=== PATIENT | male | born 1955 | race Caucasian/White ===

== ENCOUNTER 2024-02-04 14:14 | Inpatient (IN) | payer MEDICARE, BC ==
[~2024-02-04] VITALS: Ht 182.9 cm; Wt 110.0 kg
[~2024-02-04 14:14] MED LIST: AMLO1TAB25 PO; ASPI81CH33 PO; ATOR80TA59 PO; CARV6.25 PO; CLOP75TA2 PO; ENOX60IN3 SC; FLOM0.4C39 PO; HYDR-3490 PO; LISI10TA22 PO; MED REC COMMENT; POLY17PO18 PO; SENN-23 PO; [UNRECOGNIZED DRUG - CODE] PO
[2024-02-04] MEDS ORDERED: ARIC1TAB PO (14:49)
[2024-02-04] MEDS ORDERED: SERT50TA29 PO (14:49)
[2024-02-04] MEDS ORDERED: FERR1TAB8 PO (14:49)
[2024-02-04] MEDS ORDERED: LISI20TA33 PO (14:49)
[2024-02-04] MEDS ORDERED: ISOS1TAB36 PO (14:49)
[2024-02-04] MEDS ORDERED: LIDO2URO TOP (14:49)
[2024-02-04] MEDS ORDERED: MINO2.5T PO (14:49)
[2024-02-04] MEDS ORDERED: HYDR50TA46 PO (14:49)
[2024-02-04 17:50] VITALS: BP 129/75; TEMP 97.7; O2SAT 97
[2024-02-04] MEDS: NS 500 ML IV ONE (18:46)
[2024-02-04 21:00] VITALS: BP 149/76; TEMP 97.9; O2SAT 94
[2024-02-04] MEDS: FINASTERIDE 5MG TAB PO SCH (21:05)
[2024-02-04] MEDS: ATORVASTATIN 20 MG TAB PO SCH (21:05)
[2024-02-05] VITALS (10 sets, daily range): BP systolic 118–210; BP diastolic 52–155; TEMP 97.9; O2SAT 96–98
[2024-02-05 06:16] LABS: BASO # 0.1 10^3/uL (0.0-0.2); BASO % 0.7 % (0.0-1.0); EOS # 0.3 10^3/uL (0.0-0.5); EOS % 4.2 % (0.0-3.0); HEMATOCRIT 29.1 % (42.0-52.0); HEMOGLOBIN 9.5 g/dl (13.5-17.5); LYMPH # 0.6 10^3/uL (1.5-5.0); LYMPH % 9.1 % (24.0-44.0); MEAN CORPUSCULAR HEMOGLOBIN 28.5 pg (27.0-33.0); MEAN CORPUSCULAR HGB CONC 32.6 g/dl (32.0-36.5); MEAN CORPUSCULAR VOLUME 87.4 fl (80.0-96.0); MONO # 0.5 10^3/uL (0.0-0.8); MONO % 7.2 % (2.0-8.0); NEUTROPHILS # 5.5 10^3/uL (1.5-8.5); NEUTROPHILS % 78.4 % (36.0-66.0); PLATELET COUNT, AUTOMATED 283 10^3/uL (150-450); RED BLOOD COUNT 3.33 10^6/uL (4.30-6.10)
[2024-02-05 06:41] LABS: CALCIUM LEVEL 8.7 MG/DL (8.3-10.6); CREATININE FOR GFR 1.81 MG/DL (0.70-1.30); GLOMERULAR FILTRATION RATE 40.1 (>49); POTASSIUM SERUM 4.3 MMOL/L (3.5-5.1)
[2024-02-05] MEDS ORDERED: HOME MED LIST COMPLETE! XX SCH (07:35)
[2024-02-05] MEDS: ASPIRIN 81MG CHEW TABLET PO SCH (08:20)
[2024-02-05] MEDS: **hydrALAZINE** 50 MG TAB PO ONE (08:21)
[2024-02-05] MEDS: ISOSORBIDE MON. (IMDUR) 60MG XR TAB PO ONE (08:21)
[2024-02-05] MEDS: THIAMINE 100 MG TAB PO SCH (08:22)
[2024-02-05] MEDS ORDERED: ISOSORBIDE MON. (IMDUR) 60MG XR TAB PO SCH (09:00)
[2024-02-05] MEDS: CLOPIDOGREL 75 MG TAB PO SCH (09:00)
[2024-02-05] MEDS ORDERED: hydrALAZINE 20MG/ML 1ML VIAL IV SCH (10:15)
[2024-02-05] MEDS: cloNIDine 0.1MG TABLET PO ONE ×2 (11:36→12:47)
[2024-02-05] MEDS ORDERED: **hydrALAZINE** 50 MG TAB PO SCH (12:00)
[2024-02-05] MEDS: NS 500 ML IV ONE (12:57)
[2024-02-05] MEDS: NS 1,000 ML IV ONE (13:52)
[2024-02-05] MEDS: ERTAPENEM SODIUM 1 GM in NS MINI-BAG PLUS 50 ML IV SCH (15:06)
[2024-02-05] MEDS: CARVedilol 6.25 MG TAB PO SCH (17:04)
[2024-02-05] MEDS: **hydrALAZINE** 50 MG TAB PO SCH (17:04)
[2024-02-05] MEDS: TAMSULOSIN 0.4 MG CAP PO SCH (21:35)
[2024-02-06] MEDS ORDERED: UNRESOLVED CLARIFICATION ENTRY XX SCH (00:01)
[2024-02-06 04:30] VITALS: BP 158/78; TEMP 98.2; O2SAT 94
[2024-02-06 06:59] LABS: BASO # 0.1 10^3/uL (0.0-0.2); BASO % 0.7 % (0.0-1.0); EOS # 0.3 10^3/uL (0.0-0.5); EOS % 4.4 % (0.0-3.0); HEMATOCRIT 27.2 % (42.0-52.0); HEMOGLOBIN 8.9 g/dl (13.5-17.5); LYMPH # 0.7 10^3/uL (1.5-5.0); MEAN CORPUSCULAR HEMOGLOBIN 28.3 pg (27.0-33.0); MEAN CORPUSCULAR HGB CONC 32.7 g/dl (32.0-36.5); MEAN CORPUSCULAR VOLUME 86.6 fl (80.0-96.0); MONO # 0.5 10^3/uL (0.0-0.8); MONO % 6.1 % (2.0-8.0); NEUTROPHILS # 5.9 10^3/uL (1.5-8.5); NEUTROPHILS % 79.4 % (36.0-66.0); PLATELET COUNT, AUTOMATED 253 10^3/uL (150-450); RED BLOOD COUNT 3.14 10^6/uL (4.30-6.10); WHITE BLOOD COUNT 7.5 10^3/uL (4.0-10.0)
[2024-02-06 07:28] LABS: CALCIUM LEVEL 8.4 MG/DL (8.3-10.6); CREATININE FOR GFR 1.72 MG/DL (0.70-1.30); GLOMERULAR FILTRATION RATE 42.6 (>49); POTASSIUM SERUM 4.1 MMOL/L (3.5-5.1)
[2024-02-06] MEDS: ISOSORBIDE MON. (IMDUR) 60MG XR TAB PO SCH (09:04)
[2024-02-06 12:12] VITALS: BP 147/75; TEMP 97.9; O2SAT 96
[2024-02-06 20:48] VITALS: BP 176/92; TEMP 97.7; O2SAT 98
[2024-02-06] MEDS: CARVedilol 6.25 MG TAB PO SCH (20:50)
[2024-02-07 04:36] VITALS: BP 170/83; TEMP 98.2; O2SAT 96
[2024-02-07 08:05] LABS: BASO % 0.5 % (0.0-1.0); EOS # 0.4 10^3/uL (0.0-0.5); EOS % 4.5 % (0.0-3.0); HEMATOCRIT 29.2 % (42.0-52.0); HEMOGLOBIN 9.6 g/dl (13.5-17.5); LYMPH # 0.6 10^3/uL (1.5-5.0); LYMPH % 6.9 % (24.0-44.0); MEAN CORPUSCULAR HEMOGLOBIN 28.4 pg (27.0-33.0); MEAN CORPUSCULAR HGB CONC 32.9 g/dl (32.0-36.5); MEAN CORPUSCULAR VOLUME 86.4 fl (80.0-96.0); MONO # 0.4 10^3/uL (0.0-0.8); MONO % 5.3 % (2.0-8.0); NEUTROPHILS # 6.7 10^3/uL (1.5-8.5); NEUTROPHILS % 82.4 % (36.0-66.0); PLATELET COUNT, AUTOMATED 283 10^3/uL (150-450); RED BLOOD COUNT 3.38 10^6/uL (4.30-6.10); WHITE BLOOD COUNT 8.1 10^3/uL (4.0-10.0)
[2024-02-07 08:18] LABS: C REACTIVE PROTEIN QUANTITATIV 0.4 MG/DL (<1.0)
[2024-02-07 08:19] LABS: CALCIUM LEVEL 8.6 MG/DL (8.3-10.6); CREATININE FOR GFR 1.75 MG/DL (0.70-1.30); GLOMERULAR FILTRATION RATE 41.7 (>49); POTASSIUM SERUM 4.2 MMOL/L (3.5-5.1)
[2024-02-07 08:25] LABS: ERYTHROCYTE SEDIMENTATION RATE 22 mm/hr (0-20)
[2024-02-07] MEDS: ISOSORBIDE MON. (IMDUR) 60MG XR TAB PO ONE (08:27)
[2024-02-07 08:31] LABS: PROCALCITONIN 0.11 ng/ml
[2024-02-07 12:46] VITALS: BP 147/77; TEMP 97.9; O2SAT 98
[2024-02-07] MEDS: SENOKOT S TAB PO ONE (12:49)
[2024-02-07] MEDS: MIRALAX *UNIT DOSE* 17GM PACKET PO ONE (12:49)
[2024-02-07] MEDS: BISACODYL 5MG TAB PO ONE (12:49)
[2024-02-07 20:42] VITALS: BP 157/74; TEMP 97.7; O2SAT 98
[2024-02-07] MEDS ORDERED: SENOKOT S TAB PO PRN (21:00)
[2024-02-08 04:26] VITALS: BP 135/86; TEMP 97.9; O2SAT 96
[2024-02-08 07:21] LABS: BASO % 0.5 % (0.0-1.0); EOS # 0.3 10^3/uL (0.0-0.5); EOS % 3.7 % (0.0-3.0); HEMOGLOBIN 9.7 g/dl (13.5-17.5); LYMPH # 0.6 10^3/uL (1.5-5.0); LYMPH % 7.3 % (24.0-44.0); MEAN CORPUSCULAR HGB CONC 32.3 g/dl (32.0-36.5); MEAN CORPUSCULAR VOLUME 86.7 fl (80.0-96.0); MONO # 0.5 10^3/uL (0.0-0.8); MONO % 5.8 % (2.0-8.0); NEUTROPHILS # 7.2 10^3/uL (1.5-8.5); NEUTROPHILS % 82.2 % (36.0-66.0); PLATELET COUNT, AUTOMATED 283 10^3/uL (150-450); RED BLOOD COUNT 3.46 10^6/uL (4.30-6.10); WHITE BLOOD COUNT 8.8 10^3/uL (4.0-10.0)
[2024-02-08 07:44] LABS: CALCIUM LEVEL 8.6 MG/DL (8.3-10.6); CREATININE FOR GFR 1.62 MG/DL (0.70-1.30); GLOMERULAR FILTRATION RATE 45.6 (>49); POTASSIUM SERUM 3.9 MMOL/L (3.5-5.1)
[2024-02-08 08:00] VITALS: BP 146/72; TEMP 97.5; O2SAT 96
[2024-02-08] MEDS: ISOSORBIDE MON. (IMDUR) 60MG XR TAB PO SCH (09:00)
[2024-02-08 12:00] VITALS: BP 158/71; TEMP 97.5; O2SAT 98
[2024-02-08] MEDS ORDERED: BISACODYL 5MG TAB PO PRN (12:25)
[2024-02-08 16:00] VITALS: BP 170/82; TEMP 97.7; O2SAT 97
[2024-02-08 20:35] VITALS: BP 191/86; TEMP 97.4
[2024-02-09 01:49] VITALS: BP 175/83; TEMP 97.9
[2024-02-09 04:42] VITALS: BP 170/82; TEMP 98.1
[2024-02-09 06:24] LABS: BASO # 0.1 10^3/uL (0.0-0.2); BASO % 0.6 % (0.0-1.0); EOS # 0.3 10^3/uL (0.0-0.5); EOS % 3.6 % (0.0-3.0); HEMATOCRIT 31.5 % (42.0-52.0); HEMOGLOBIN 10.4 g/dl (13.5-17.5); LYMPH # 0.7 10^3/uL (1.5-5.0); LYMPH % 7.5 % (24.0-44.0); MEAN CORPUSCULAR HEMOGLOBIN 28.7 pg (27.0-33.0); MONO # 0.5 10^3/uL (0.0-0.8); NEUTROPHILS # 7.3 10^3/uL (1.5-8.5); PLATELET COUNT, AUTOMATED 285 10^3/uL (150-450); RED BLOOD COUNT 3.62 10^6/uL (4.30-6.10); WHITE BLOOD COUNT 8.9 10^3/uL (4.0-10.0)
[2024-02-09 06:52] LABS: CALCIUM LEVEL 8.8 MG/DL (8.3-10.6); CREATININE FOR GFR 1.69 MG/DL (0.70-1.30); GLOMERULAR FILTRATION RATE 43.4 (>49); POTASSIUM SERUM 4.1 MMOL/L (3.5-5.1)
[2024-02-09 08:00] VITALS: BP 164/83; TEMP 97.9; O2SAT 96
[2024-02-09 12:00] VITALS: BP 128/64; TEMP 97.7; O2SAT 98
[2024-02-09 21:28] VITALS: BP 159/67; TEMP 98.6; O2SAT 97
[2024-02-09 23:20] VITALS: BP 170/78; TEMP 98.2; O2SAT 97
[2024-02-10 05:40] VITALS: BP 167/76; TEMP 97.7; O2SAT 96
[2024-02-10 06:24] LABS: BASO % 0.5 % (0.0-1.0); EOS # 0.4 10^3/uL (0.0-0.5); EOS % 4.5 % (0.0-3.0); HEMATOCRIT 29.6 % (42.0-52.0); HEMOGLOBIN 9.5 g/dl (13.5-17.5); LYMPH # 0.8 10^3/uL (1.5-5.0); LYMPH % 8.7 % (24.0-44.0); MEAN CORPUSCULAR HEMOGLOBIN 28.3 pg (27.0-33.0); MEAN CORPUSCULAR HGB CONC 32.1 g/dl (32.0-36.5); MEAN CORPUSCULAR VOLUME 88.1 fl (80.0-96.0); MONO # 0.5 10^3/uL (0.0-0.8); MONO % 6.2 % (2.0-8.0); NEUTROPHILS # 6.9 10^3/uL (1.5-8.5); NEUTROPHILS % 79.8 % (36.0-66.0); PLATELET COUNT, AUTOMATED 298 10^3/uL (150-450); RED BLOOD COUNT 3.36 10^6/uL (4.30-6.10); WHITE BLOOD COUNT 8.7 10^3/uL (4.0-10.0)
[2024-02-10 06:52] LABS: CALCIUM LEVEL 8.9 MG/DL (8.3-10.6); CREATININE FOR GFR 1.84 MG/DL (0.70-1.30); GLOMERULAR FILTRATION RATE 39.4 (>49)
[2024-02-10 08:00] VITALS: BP 165/77; TEMP 98.1; O2SAT 98
[2024-02-10] MEDS: MIRALAX *UNIT DOSE* 17GM PACKET PO PRN (09:11)
[2024-02-10 12:00] VITALS: BP 136/66; TEMP 97.7; O2SAT 98
[2024-02-10 16:00] VITALS: BP 155/72; TEMP 98.1; O2SAT 95
[2024-02-10 20:03] VITALS: BP 159/73; TEMP 98.2; O2SAT 97
[2024-02-11 00:13] VITALS: BP 166/78; TEMP 98.6; O2SAT 97
[2024-02-11 03:58] VITALS: BP 187/89; TEMP 98.1; O2SAT 98
[2024-02-11 07:33] LABS: BASO # 0.1 10^3/uL (0.0-0.2); BASO % 0.6 % (0.0-1.0); EOS # 0.4 10^3/uL (0.0-0.5); EOS % 4.3 % (0.0-3.0); HEMATOCRIT 29.5 % (42.0-52.0); HEMOGLOBIN 9.6 g/dl (13.5-17.5); LYMPH # 0.5 10^3/uL (1.5-5.0); LYMPH % 6.5 % (24.0-44.0); MEAN CORPUSCULAR HEMOGLOBIN 28.3 pg (27.0-33.0); MEAN CORPUSCULAR HGB CONC 32.5 g/dl (32.0-36.5); MONO # 0.5 10^3/uL (0.0-0.8); MONO % 5.7 % (2.0-8.0); NEUTROPHILS # 6.7 10^3/uL (1.5-8.5); NEUTROPHILS % 82.5 % (36.0-66.0); PLATELET COUNT, AUTOMATED 297 10^3/uL (150-450); RED BLOOD COUNT 3.39 10^6/uL (4.30-6.10); WHITE BLOOD COUNT 8.1 10^3/uL (4.0-10.0)
[2024-02-11 07:57] LABS: CALCIUM LEVEL 8.8 MG/DL (8.3-10.6); CREATININE FOR GFR 1.73 MG/DL (0.70-1.30); GLOMERULAR FILTRATION RATE 42.3 (>49)
[2024-02-11 08:00] VITALS: BP 162/86; TEMP 97.7; O2SAT 96
[2024-02-11 12:00] VITALS: BP 163/81; TEMP 97.5; O2SAT 98
[2024-02-11 16:00] VITALS: BP 155/77; TEMP 97.9; O2SAT 92
[2024-02-11 20:10] VITALS: BP 151/75; TEMP 97.9; O2SAT 96
[2024-02-12 03:49] VITALS: BP 175/80; TEMP 97.9; O2SAT 96
[2024-02-12 08:26] VITALS: BP 170/77; TEMP 98.4; O2SAT 96
[2024-02-12 12:00] VITALS: BP 164/77; TEMP 97.9; O2SAT 95
[2024-02-12 17:16] VITALS: BP 161/78; TEMP 97.9; O2SAT 94
[2024-02-12 19:58] VITALS: BP 162/76; TEMP 97.9; O2SAT 96
[2024-02-12] MEDS: **hydrALAZINE** 50 MG TAB PO SCH (22:24)
[2024-02-13] VITALS (9 sets, daily range): BP systolic 136–196; BP diastolic 66–89; TEMP 97.9–98.4; O2SAT 96–99
[2024-02-14 00:30] VITALS: BP 162/86; TEMP 98.6; O2SAT 94
[2024-02-14 04:14] VITALS: BP 171/79; TEMP 97.9; O2SAT 99
[2024-02-14 08:00] VITALS: BP 126/75; TEMP 97.7; O2SAT 96
[2024-02-14 12:00] VITALS: BP 176/75; TEMP 97.7; O2SAT 98
[2024-02-14 20:24] VITALS: BP 164/82; TEMP 98.1; O2SAT 97
[2024-02-14 23:47] VITALS: BP 141/79; TEMP 97.9; O2SAT 97
[2024-02-15 04:14] VITALS: BP 170/80; TEMP 98.1; O2SAT 94
[2024-02-15] MEDS: NYSTATIN 100,000 UNITS/GM TOPICAL PWD 15GM TOP PRN (06:11)
[2024-02-15 08:00] VITALS: BP 153/72; TEMP 97.9; O2SAT 98
[2024-02-15] MEDS ORDERED: HYDR50TA46 PO (08:23)
[2024-02-15] MEDS ORDERED: FINA5TAB2 PO (08:23)
[2024-02-15] MEDS ORDERED: AMLO1TAB25 PO (08:23)
[2024-02-15] MEDS ORDERED: CARV6.25 PO (08:23)
[2024-02-15 09:32] VITALS: BP 158/73
[2024-02-15 09:34] VITALS: BP 158/73
== END 2024-02-15 10:10 | DRG 305 ==
LOC: M MS5PR 17:50
PROVIDERS: ADMIT General Practice; ATTEND Family Medicine
DX: I16.0 Hypertensive urgency (principal); D62 Acute posthemorrhagic anemia; I69.351 Hemiplegia and hemiparesis following cerebral infarction affecting right dominant side; T83.518A Infection and inflammatory reaction due to other urinary catheter, initial encounter; N39.0 Urinary tract infection, site not specified; R31.0 Gross hematuria; N13.9 Obstructive and reflux uropathy, unspecified; N18.32 Chronic kidney disease, stage 3b; K59.00 Constipation, unspecified; Z79.82 Long term (current) use of aspirin; Z79.899 Other long term (current) drug therapy